=== PATIENT | male | born 1950 | race Caucasian/White ===

== ENCOUNTER → 2016-11-02 | Outpatient (REF) ==
[2016-11-02 06:27] LABS: BASO % 0.1 % (0.0-2.0); EOS % 0.2 % (0-4.0); GRAN # 9.8 (1.4-6.5); GRAN % 79.8 % (42.2-75.2); HEMATOCRIT 43.8 % (42.0-52.0); HEMOGLOBIN 15.3 g/dl (13.5-18.0); LYMPH # 1.3 (1.2-3.4); LYMPH % 10.6 % (20.0-51.0); MEAN CELL VOLUME 92 fl (80.0-100.0); MEAN CORPUSCULAR HEMOGLOBIN 32 pg (27.0-31.0); MEAN CORPUSCULAR HGB CONC 35 g/dl (33.0-37.0); MEAN PLATELET VOLUME 10.1 fl (7.4-10.4); MONO # 1.1 (0.1-0.6); PLATELET COUNT 331 K/mm3 (130-400); RED BLOOD COUNT 4.76 M/mm3 (4.20-5.60); REDCELL DISTRIBUTION WIDTH-CV 12.5 % (11.5-14.5); WHITE BLOOD COUNT 12.3 K/mm3 (4.8-10.8)
== END ==
LOC: ZMSC 06:23
PROVIDERS: Urology
DX: Z02.89 Encounter for other administrative examinations (principal)

== ENCOUNTER 2023-11-10 06:44 | Day surgery (SDC) | payer MEDICARE, BC ==
[~2023-11-10] VITALS: Ht 182.9 cm; Wt 98.3 kg
[~2023-11-10 06:44] MED LIST: LR 1,000 ML IV SCH; Ondansetron 4 MG/2 ML VIAL IV PRN
[2023-11-10 07:20] VITALS: BP 130/81; PULSE 79; TEMP 97.2
[2023-11-10] MEDS ORDERED: SYMMETREL100 MG PO (07:47)
[2023-11-10] MEDS ORDERED: CYMBALTA 60MG60 MG PO (07:47)
[2023-11-10] MEDS ORDERED: SINEMET 25/101 UDTAB PO (07:48)
[2023-11-10] MEDS ORDERED: HCTZ 25MG TAB25 MG PO (07:48)
[2023-11-10] MEDS ORDERED: PRINIVIL20 MG PO (07:49)
[2023-11-10] MEDS ORDERED: MOBIC15 MG PO (07:49)
[2023-11-10] MEDS ORDERED: LIALDA 1.2 GM1.2 GM PO (07:51)
[2023-11-10] MEDS ORDERED: MIRAPEX 1MG PO (07:52)
[2023-11-10] MEDS ORDERED: ULTRAM 50MG TAB50 MG PO (07:52)
[2023-11-10] MEDS ORDERED: ZOCOR 40MG40 MG PO (07:52)
[2023-11-10 09:20] VITALS: BP 146/81; PULSE 60
--- NOTE | 2023-11-10 09:25 | NUR ---
0920 PATIENT RETURNS TO [facility] VIA CART. PT AWAKE AND ALERT. RESPIRATIONS UNLABORED. AMBULATED TO RECLINER CHAIR WITH 2:1 SBA. PT DENIES NAUSEA OR ABDOMINAL PAIN. HOOKED UP TO MONITOR AND VS OBTAINED. CALL LIGHT AT SIDE AND STEP DAUGHTER PRESENT. 0925 PATIENT TOLERATING ICE WATER AND CHOCOLATE ICE CREAM WITHOUT NAUSEA OR DIFFICULTY SWALLOWING. 0935 IN ROOM SPEAKING WITH PATIENT. 0945 D/C INSTRUCTIONS REVIEWED WITH PATIENT. PT VERBALIZED UNDERSTANDING AND A COPY OF INSTRUCTIONS PROVIDED IN D/C FOLDER. 1000 PATIENT DRESSES SELF. 1005 PATIENT DISCHARGED FROM UNIT VIA W/C TO A PERSONAL VEHICLE. PT LEFT HOSPITAL IN STABLE CONDITION.
[2023-11-10 09:35] VITALS: BP 156/82; PULSE 66
[2023-11-10 09:50] VITALS: BP 163/74; PULSE 65
== END 2023-11-10 10:05 | disposition home or self-care (01) ==
LOC: SDCO 06:44
DX: K50.10 Crohn's disease of large intestine without complications (principal); K52.9 Noninfective gastroenteritis and colitis, unspecified; K64.0 First degree hemorrhoids; Z79.899 Other long term (current) drug therapy; Z79.82 Long term (current) use of aspirin; Z87.891 Personal history of nicotine dependence
CPT/HCPCS: J2704; J7120